=== PATIENT | male | born 1990 | race Two or more races ===

== ENCOUNTER 2017-04-17 15:42 | Emergency (ER) | payer OTHER ==
[~2017-04-17] VITALS: Ht 175.3 cm; Wt 110.2 kg
[2017-04-17] MEDS ORDERED: HYDROcodone-ACET 10/325MG TAB PO ONE (17:00)
[2017-04-17 18:34] VITALS: BP 136/70
== END 2017-04-17 18:32 | disposition home or self-care (01) ==
LOC: ER 15:49
DX: S52.502A Unspecified fracture of the lower end of left radius, initial encounter for closed fracture (principal); X58.XXXA Exposure to other specified factors, initial encounter; Y93.89 Activity, other specified; Y92.89 Other specified places as the place of occurrence of the external cause; Y99.8 Other external cause status
CPT/HCPCS: 29125; 73110